=== PATIENT | female | born 1990 | race Hispanic/Latino ===

== ENCOUNTER 2017-12-26 21:09 | Inpatient (IN) | payer MEDICAID, OTHER ==
[~2017-12-26 21:09] MED LIST: Bupivacaine 0.25% HCL 30 ML VIAL ONE
[2017-12-26 21:47] VITALS: BMI 42.7
[2017-12-26] MEDS ORDERED: Methylergonovine 0.2 MG/ML VIAL IM PRN (22:15)
[2017-12-26] MEDS ORDERED: Lidocaine 1% (PF) 30 ML VIAL SC PRN (22:15)
[2017-12-26] MEDS ORDERED: Misoprostol 200 MCG TAB RC PRN (22:15)
[2017-12-26] MEDS ORDERED: Carboprost 250 MCG/ML AMP IM PRN (22:15)
[2017-12-26] MEDS ORDERED: Ibuprofen 800 MG TAB PO PRN (22:15)
[2017-12-26] MEDS ORDERED: HYDROcodone/Acetaminophen 5/325 mg Tablet PO PRN ×2 (22:15)
[2017-12-26] MEDS ORDERED: NS w/ Oxytocin 10 units 500 ML IV SCH ×2 (22:15)
[2017-12-26] MEDS ORDERED: Ondansetron HCl/PF 4 MG/2 ML Vial IVP PRN (22:26)
[2017-12-26] MEDS ORDERED: Promethazine HCl 25 MG/ML VIAL IM PRN (22:26)
[2017-12-26] MEDS: Lactated Ringer's 1,000 ML IV SCH (22:45)
[2017-12-26] MEDS: Misoprostol 100 MCG TAB VAG SCH (22:59)
[2017-12-26 23:06] LABS: Hemoglobin 9.6 g/dL (12.0-16.0); Mean Corpuscular HGB CONC 32.9 g/dL (32.0-36.0); Mean Corpuscular Hemoglobin 22.4 pg (27.0-31.0); Mean Corpuscular Volume 68.1 fL (78.0-98.0); Mean Platelet Volume 8.7 fL (7.4-10.4); Platelet Count 377 thou/uL (130-400); RBC Distribution Width 17.8 % (11.5-14.5); White Blood Cell (WBC) Count 8.5 thou/uL (4.8-10.8)
[2017-12-26 23:34] LABS: HBSAg Index 0.21 S/CO (0-0.99); HIV (1/2) Antibody/Antigen Non-Reactive (NonReactive); HIV 1/2 INDEX 0.14 S/CO (<1.00); Hep B Surf Ag Non-Reactive S/CO (NonReactive); Syphilis Antibody Nonreactive (Nonreactive); Syphilis Antibody Index 0.05 S/CO (<1.00 Non-Reactive)
[2017-12-27] MEDS: Lactated Ringer's 1,000 ML IV SCH ×2 (02:28→04:26)
[2017-12-27] MEDS: Misoprostol 100 MCG TAB VAG SCH ×3 (02:53→19:15)
[2017-12-27] MEDS ORDERED: Butorphanol Tartrate 1 MG/ML VIAL ONE (02:59)
[2017-12-27] MEDS ORDERED: Bupivacaine 0.5% 20 ML, fentaNYL Citrate/PF 400 MCG in Sodium Chloride 0.9% 72 ML EPIDURAL SCH (03:30)
[2017-12-27] MEDS ORDERED: ePHEDrine/0.9% NaCl/PF SYRINGE 50 mg/10 ml SLOW IVP PRN (04:32)
[2017-12-27] MEDS ORDERED: Eucerin (Mineral Oil/Petrolatum,White) 30 gm Jar TOP PRN (04:32)
[2017-12-27] MEDS ORDERED: Promethazine HCl 25 MG/ML VIAL IM PRN ×2 (04:32→09:54)
[2017-12-27] MEDS ORDERED: diphenhydrAMINE 50 MG/ML VIAL IVP PRN (04:32)
[2017-12-27] MEDS ORDERED: Acetaminophen 325 MG TAB PO PRN (04:32)
[2017-12-27] MEDS ORDERED: Ondansetron HCl/PF 4 MG/2 ML Vial IVP PRN ×2 (04:32→09:54)
[2017-12-27] MEDS ORDERED: Naloxone HCl 0.4 mg/ml Vial IVP PRN ×2 (04:32)
[2017-12-27] MEDS ORDERED: Lactated Ringer's 500 ML IV PRN (04:32)
[2017-12-27] MEDS ORDERED: Communication Order-Pharmacy FS SCH (04:45)
[2017-12-27] MEDS ORDERED: fentaNYL Citrate/PF 400 MCG, Bupivacaine 0.5% 20 ML in Sodium Chloride 0.9% 72 ML EPIDURAL SCH (04:45)
[2017-12-27] MEDS: NS / Oxytocin 40 units/1000ml 1,000 ML IV SCH ×2 (05:05→06:06)
--- NOTE | 2017-12-27 05:06 | PDOC.EVN ---
Event Note - Event Note Event Note: Rapid progress after 1 dose of cytotec and epidural. Pt. c/o pressure followed by pushing. Controlled of vigorous female . Apgars to follow. Cord blood obtained. Dr. Zuñiga present for delivery of placenta. Mom and baby doing well.
[2017-12-27] MEDS ORDERED: Benzocaine/Menthol 20-0.5% 60 ML CAN TOP PRN (09:54)
[2017-12-27] MEDS ORDERED: Preparation H Ointment 28 GM TUBE PR PRN (09:54)
[2017-12-27] MEDS ORDERED: Zolpidem Tartrate 5 MG TAB PO PRN (09:54)
[2017-12-27] MEDS ORDERED: diphenhydrAMINE 25 MG CAP PO PRN (09:54)
[2017-12-27] MEDS ORDERED: Methylergonovine 0.2 MG TAB PO PRN (09:54)
[2017-12-27] MEDS ORDERED: Milk Of Magnesia 30 ML UDCUP PO PRN (09:54)
[2017-12-27] MEDS ORDERED: NS / Oxytocin 40 units/1000ml 1,000 ML IV SCH (09:54)
[2017-12-27] MEDS ORDERED: HYDROcodone/Acetaminophen 5/325 mg Tablet PO PRN ×2 (09:54)
[2017-12-27] MEDS ORDERED: Lanolin Ointment 7 GM TUBE TOP PRN (09:54)
[2017-12-27] MEDS ORDERED: Bisacodyl 10 MG SUPP PR PRN (09:54)
[2017-12-27] MEDS ORDERED: Misoprostol 200 MCG TAB VAG PRN (09:54)
[2017-12-27 11:01] LABS: Hemoglobin 9.1 g/dL (12.0-16.0)
[2017-12-27] MEDS: Ibuprofen 800 MG TAB PO SCH ×2 (15:57→21:54)
[2017-12-27] MEDS: Ferrous Sulfate 325 MG TAB PO SCH (15:57)
[2017-12-27] MEDS ORDERED: Adacel (T-DAP) 0.5 ML VIAL IM ONE (21:00)
[2017-12-27] MEDS: Docusate Calcium (SURFAK) 240 MG CAP PO SCH (21:54)
[2017-12-28] MEDS: Ibuprofen 800 MG TAB PO SCH ×3 (05:28→22:11)
[2017-12-28] MEDS: Docusate Calcium (SURFAK) 240 MG CAP PO SCH ×2 (09:05→22:11)
[2017-12-28] MEDS: Ferrous Sulfate 325 MG TAB PO SCH ×2 (09:05→18:25)
--- NOTE | 2017-12-28 20:56 | PDOC.PP ---
Post Progress Note Post Day #: 1 PO intake tolerated: yes Flatus: yes Ambulation: yes Weight Weight 249 lb - Physical Examination General: NAD Cardiovascular: RRR Respiratory: clear to auscultation bilaterally Abdominal: + bowel sounds, no distention, appropriately TTP Extremities: negative homans (B) Neurological: no gross focal deficits Psychiatric: A&Ox3, normal affect Result Diagrams: 12/27/17 10:53 Additional Labs: Post Labs Blood Type A NEGATIVE 12/26/17 22:14 Hep Bs Antigen Non-Reactive S/CO (NonReactive) 12/26/17 22:14 - Assessment/Plan Patient is doing great on PP Day 1. DC to home planned for tomorrow.
[2017-12-29 00:40] VITALS: TEMP 98.6
[2017-12-29] MEDS: Ibuprofen 800 MG TAB PO SCH (05:59)
[2017-12-29 08:29] VITALS: BP 99/66
[2017-12-29] MEDS: Ferrous Sulfate 325 MG TAB PO SCH (08:51)
[2017-12-29] MEDS: Docusate Calcium (SURFAK) 240 MG CAP PO SCH (08:51)
== END 2017-12-29 11:40 | disposition home or self-care (01) | DRG 775 ==
LOC: L&D 21:09 → 3SE 12-27 08:02
PROVIDERS: ADMIT Obstetrics & Gynecology; ATTEND Obstetrics & Gynecology
PROC: 0KQM0ZZ Repair Perineum Muscle, Open Approach (ICD-10-PCS; principal; 2017-12-27)
PROC: 3E0234Z Introduction of Serum, Toxoid and Vaccine into Muscle, Percutaneous Approach (ICD-10-PCS; 2017-12-27)
PROC: 10E0XZZ Delivery of Products of Conception, External Approach (ICD-10-PCS; 2017-12-27)
DX: O70.1 Second degree perineal laceration during delivery (principal); Z37.0 Single live birth; Z23 Encounter for immunization; Z3A.39 39 weeks gestation of pregnancy
CPT/HCPCS: 36415; 85014; 85018; 85027; 85461; 86780; 86850; 86900; 86901; 87340; 87389; 90384; 96372; J0595; J2001; J2405; J3010; J3490; J7050; S0020